=== PATIENT | male | born 1995 ===

== ENCOUNTER 2023-10-27 09:30 | Emergency (ER) | payer SELFPAY ==
[2023-10-27 09:37] VITALS: BP 144/83; PULSE 107; RESP 20; TEMP 37.2; O2SAT 97; BMI 60.3
[2023-10-27 10:20] LABS: Internal Control Within Normal Limits; Strep A Antigen Screen Positive
[2023-10-27 10:21] LABS: Influenza Virus A Antigen Negative; Influenza Virus B Antigen Negative; Internal Control Within Normal Limits
--- NOTE | 2023-10-27 10:27 | ED.GENADUL1 ---
HPI - General Adult General Stated complaint: GENERAL WEAKNESS Time Seen by Provider: 10/27/23 10:20 Source: patient Mode of arrival: walk-in History of Present Illness HPI narrative: This is a 28-year-old here with symptoms as noted below. He is here with his mother. He does not have any other comorbidities or past medical surgical or respiratory problems or issues. He had abrupt onset yesterday of aches pains chills myalgias arthralgias sore throat cough and mild headache. He has had family members over the last several weeks who has been bouncing [id number] . He is not an alcoholic or diabetic. He was supposed to be at work today but he just said his aches and pains were terrible. He does not not have any nausea vomiting or diarrhea. Should be noted that we are in the middle of the influenza epidemic and he has classic textbook symptoms. Related Data Home Medications Medication Instructions Recorded Confirmed No Known Home Medications 10/27/23 10/27/23 Allergies Allergy/AdvReac Type Severity Reaction Status Date / Time No Known Drug Allergies Allergy Verified 10/27/23 09:41 Exam Narrative Exam Narrative: Awake alert pleasant good historian no evidence of encephalopathy or encephalitis. Does not have any severe headache at this time. When I ask him to cough he does not have any bronchospastic component to the cough that is dry and nonproductive. He moves about comfortably. Does not have any abdominal pain. His vital signs are noted and he is afebrile at this time. Constitutional Vital Signs, click to edit/add: Last Vital Signs Temp 99 F 10/27/23 09:37 Pulse 107 H 10/27/23 09:37 Resp 20 10/27/23 09:37 BP 144/83 H 10/27/23 09:37 Pulse Ox 97 10/27/23 09:37 O2 Del Method Room Air 10/27/23 09:37 Course Vital Signs Vital signs: Vital Signs Temperature 99 F 10/27/23 09:37 Pulse Rate 107 H 10/27/23 09:37 Respiratory Rate 20 10/27/23 09:37 Blood Pressure 144/83 H 10/27/23 09:37 Pulse Oximetry 97 10/27/23 09:37 Oxygen Delivery Method Room Air 10/27/23 09:37 Temperature 99 F 10/27/23 09:37 Pulse Rate 107 H 10/27/23 09:37 Respiratory Rate 20 10/27/23 09:37 Blood Pressure 144/83 H 10/27/23 09:37 Pulse Oximetry 97 10/27/23 09:37 Oxygen Delivery Method Room Air 10/27/23 09:37 Medical Decision Making MDM Narrative Medical decision making narrative: This patient has classic influenza symptoms and I do not believe is necessary to test him. We talked about the pros and cons of using antiviral agents. We will give him a prescription and he can decide on usage. In the meantime he should be off work at least the next 72 hours, consideration of mask wearing in the house. Plenty of fluids and rest. I was not aware that the nursing staff had done influenza and rapid strep testing. The flu test is negative but recent experience at this institution is showed be been having false negative results confirmed with positive respiratory panel findings. In either case it is negative here and he has classic influenza symptoms. However he also tested positive for strep. Lab Data Labs: Lab Results 10/27/23 Range/Units 09:45 Influenza Type A Ag Negative Influenza Type B Ag Negative Streptococcus Screen Positive A Discharge Plan Discharge Chief Complaint: Upper Respiratory Infection Clinical Impression: Acute streptococcal pharyngitis Patient Disposition: Home, Self-Care Time of Disposition Decision: 10:31 Prescriptions / Home Meds: No Action No Known Home Medications Additional Instructions: Amoxicillin for 10 days/Tamiflu to be used as necessary/suppress fever with combination Tylenol with ibuprofen Referrals: Physician,Non-Staff, MD [Primary Care Provider] - 1 week Stand Alone Forms: Portal Instructions
== END 2023-10-27 10:42 | disposition home or self-care (01) ==
PROVIDERS: Emergency Provider Emergency Medicine Emergency Medical Services
DX: J02.0 Streptococcal pharyngitis (principal)
CPT/HCPCS: 87804; 87880; 99283